=== PATIENT | male | born 1985 | race Caucasian/White ===

== ENCOUNTER 2018-02-11 19:40 | Emergency (ER) | payer MEDICARE ==
[~2018-02-11] VITALS: Ht 175.3 cm; Wt 128.5 kg
[2018-02-11 19:52] VITALS: BP 120/87
== END 2018-02-11 21:13 | disposition home or self-care (01) ==
LOC: ED 21:07
DX: G89.11 Acute pain due to trauma (principal); M79.672 Pain in left foot; M79.671 Pain in right foot; E11.9 Type 2 diabetes mellitus without complications
CPT/HCPCS: 82962; 99283